=== PATIENT | male | born 1975 | race Caucasian/White ===

== ENCOUNTER 2024-02-12 22:19 | Emergency (ER) | payer MEDICARE ==
[2024-02-12 22:34] VITALS: TEMP 97.9; O2SAT 100
--- NOTE | 2024-02-12 22:52 | ERPHSYRPT ---
- History of Present Illness Time Seen by Provider: 02/12/24 22:29 Source: patient Exam Limitations: no limitations Patient Subjective Stated Complaint: pt states fish hook to LUQ Triage Nursing Assessment: pt ambulated into the er; pt is axo x4; c/o foreign body; pt denies pain; puncture wound present to LUQ; no bleeding present; skin PDW; no respiratory distress present; vitals wnl Physician History: 48 years old unsure about tetanus status presented in the ER with fishhook embedded in the left upper quadrant abdominal wall prior to arrival. Patient tried to take it out and cut most of it but still could not take it out. Moderate pain with palpation around. Barely out edge of fishhook from abdominal wall. Given lidocaine around and it is removed intact. Patient tolerated procedure very well. Tetanus is updated. Recommended Tylenol ibuprofen as needed. Allergies/Adverse Reactions: Penicillins Allergy (Verified 02/12/24 22:24) Sulfa (Sulfonamide Antibiotics) Allergy (Verified 02/12/24 22:24) lisinopril Adverse Reaction (Verified 02/12/24 22:24) Cough Hx Tetanus, Diphtheria Vaccination/Date Given: No Hx Influenza Vaccination/Date Given: No Hx Pneumococcal Vaccination/Date Given: Yes Immunizations Up to Date: No Travel Risk - International Travel Have you traveled outside of the country in past 3 weeks: No - Emerging Infectious Disease Are you exhibiting symptoms associated with any current EIDs: No - Review of Systems Constitutional: No Symptoms Respiratory: No Symptoms Cardiac: No Symptoms Abdominal/Gastrointestinal: No Symptoms Musculoskeletal: No Symptoms Skin: Skin Lesions Neurological: No Symptoms Endocrine: No Symptoms - Past Medical History Pertinent Past Medical History: Yes Neurological History: No Pertinent History ENT History: No Pertinent History Cardiac History: High Cholesterol, Hypertension Respiratory History: Bronchitis, Pulmonary Embolism Endocrine Medical History: No Pertinent History Musculoskeletal History: No Pertinent History GI Medical History: GERD History: No Pertinent History Psycho-Social History: Anxiety, Depression Male Reproductive Disorders: No Pertinent History Other Medical History: PTSD - Past Surgical History Past Surgical History: Yes Musculoskeletal: Orthopedic Surgery Other Surgical History: rt knee replacement, lucila carpal tunnel surgery, ulnar repain - Social History Smoking Status: Former smoker Exposure to second hand smoke: No Drug Use: none - Social Determinants of Health Will the patient participate in the screening: Yes Do you worry about a steady place to live?: No Do you have any problems with any of the following?: No known problems In the past 12 months,have you had to go without utilities?: No Transportation Issues: No Has anyone in your support network made you feel unsafe?: No Have you or anyone in your house had to go without enough: No - Nursing Vital Signs Nursing Vital Signs: Initial Vital Signs Temperature 97.9 F 02/12/24 22:24 Pulse Rate 86 02/12/24 22:24 Respiratory Rate 18 02/12/24 22:24 Blood Pressure 138/94 02/12/24 22:24 O2 Sat by Pulse Oximetry 100 02/12/24 22:24 Pain Scale Pain Intensity 0 - Physical Exam General Appearance: no apparent distress Eye Exam: PERRL/EOMI Neck Exam: normal inspection, full range of motion Respiratory Exam: normal breath sounds, lungs clear Cardiovascular Exam: regular rate/rhythm, normal heart sounds Gastrointestinal/Abdomen Exam: soft, normal bowel sounds, other (Anterior abdominal wall left upper fishhook embedded), No tenderness Extremity Exam: normal inspection, normal range of motion Neurologic Exam: alert, oriented x 3, cooperative Skin Exam: normal color SpO2 Interpretation: normal SpO2: 100 O2 Delivery: Room Air Procedures - Additional Procedures Progress: [place] removal left upper abdominal wall. 10:45 PM. Sterile prep. 1% lidocaine 3 cc injected around. Pushed forward and removed intact. No bleeding. Ordered Tests: Medication Summary Discontinued Medications Generic Name Dose Route Start Last Admin Trade Name Freq PRN Reason Stop Dose Admin Bacitracin Zinc 0.9 each 02/12/24 22:55 02/12/24 23:07 Bacitracin Packet 1 Each Pckt TP 02/12/24 22:56 0.9 each STAT ONE Administration Bacitracin Zinc Confirm 02/12/24 23:04 Bacitracin Packet 1 Each Pckt Administered 02/12/24 23:05 Dose 1 each .ROUTE .STK-MED ONE Diphtheria/Tetanus/Acell Pertussis 0.5 ml 02/12/24 23:00 02/12/24 23:07 Tdap --Diph,Pertuss(Acell),Tet Vac/Pf 0.5 Ml Vial IM 02/12/24 23:01 0.5 ml .ONCE ONE Administration Diphtheria/Tetanus/Acell Pertussis Confirm 02/12/24 23:04 Tdap --Diph,Pertuss(Acell),Tet Vac/Pf 0.5 Ml Vial Administered 02/12/24 23:05 Dose 0.5 ml IM .STK-MED ONE Lidocaine HCl 3 ml 02/12/24 22:55 02/12/24 23:05 Lidocaine Hcl 1% 20 Ml Mdv 20 Ml Ml IJ 02/12/24 22:56 3 ml STAT ONE Administration Lidocaine HCl Confirm 02/12/24 23:04 Lidocaine Hcl 1% 20 Ml Mdv 20 Ml Ml Administered 02/12/24 23:05 Dose 3 ml .ROUTE .STK-MED ONE - Progress Progress: improved Progress Note: 02/12/24 22:51 48 years old unsure about tetanus status presented in the ER with fishhook embedded in the left upper quadrant abdominal wall prior to arrival. Patient tried to take it out and cut most of it but still could not take it out. Moderate pain with palpation around. Barely out edge of fishhook from abdominal wall. Given lidocaine around and it is removed intact. Patient tolerated procedure very well. Tetanus is updated. Recommended Tylenol ibuprofen as needed. Counseled pt/family regarding: diagnosis, need for follow-up Medical Desision Making - Diagnostic Testing Diagnostic test were ordered, analyzed, and reviewed by me: No - Risk of complications The pt has a mod risk of morbidity or mortality based on: Need for minor surgical intervention in patient with know risk factors - Departure Departure Disposition: Home Clinical Impression: Foreign body of abdominal wall Condition: Stable Critical Care Time: No Referrals: BOBBY ANGLIN PA [Primary Care Provider] - Follow up with PCP 1 day Instructions: Removal of Foreign Body in Skin Additional Instructions: Take Tylenol/ibuprofen as needed. Keep it clean and dry. Return to ER for increasing pain swelling redness discharge etc.
[2024-02-12] MEDS ORDERED: Adacel Vial IM ONE (23:04)
[2024-02-12] MEDS ORDERED: XYLOCAINE 1% HCL 20 ML MDV ONE (23:04)
[2024-02-12] MEDS ORDERED: BACIGUENT PACKET ONE (23:04)
[2024-02-12] MEDS: XYLOCAINE 1% HCL 20 ML MDV IJ ONE (23:05)
[2024-02-12] MEDS: Adacel Vial IM ONE (23:07)
[2024-02-12] MEDS: BACIGUENT PACKET TP ONE (23:07)
[2024-02-12 23:24] VITALS: BP 140/92; PULSE 79; RESP 20
== END 2024-02-12 23:24 | disposition home or self-care (01) ==
LOC: ED 22:19
DX: S31.141A Puncture wound of abdominal wall with foreign body, left upper quadrant without penetration into peritoneal cavity, initial encounter (principal); W26.8XXA Contact with other sharp object(s), not elsewhere classified, initial encounter; W45.8XXA Other foreign body or object entering through skin, initial encounter; I10 Essential (primary) hypertension; E78.5 Hyperlipidemia, unspecified; Z23 Encounter for immunization
CPT/HCPCS: 90471; 90715; 99283; A9270-GY